=== PATIENT | female | born 1975 | race Caucasian/White ===

== ENCOUNTER 2022-03-10 10:33 | Emergency (ER) | payer OTHER, SELFPAY ==
--- NOTE | ~2022-03-10 | XR_ITS ---
EXAMINATION: XR foot LT min 3V DATE: 03/10/2022 11:20 INDICATION: Left foot pain. TECHNIQUE: 4 views of left foot were obtained. COMPARISON: None. FINDINGS: Bone alignment is normal. No fracture. There is mild osteoarthritis of talonavicular joint, first metatarsophalangeal joint, and some of the interphalangeal joints. There are enthesophytes at the posterior and plantar aspects of calcaneal tuberosity. IMPRESSION: 1. Mild polyarticular osteoarthritis. Reviewed, dictated and finalized at location A. DRAW OPERATOR
--- NOTE | ~2022-03-10 | XR_ITS ---
EXAMINATION: XR ankle LT min 3V DATE: 03/10/2022 11:20 INDICATION: Left ankle pain. TECHNIQUE: 4 views of left ankle were obtained. COMPARISON: None. FINDINGS: Bone alignment is normal. No fracture. There is mild osteoarthritis of talonavicular joint. There are enthesophytes at posterior and plantar aspects of calcaneal tuberosity and medial and late ral malleoli. There is ankle soft tissue swelling. IMPRESSION: 1. Mild osteoarthritis of talonavicular joint. Reviewed, dictated and finalized at location A. ICIDE CHEMIST
[2022-03-10 10:42] VITALS: BP 138/86; PULSE 83; RESP 16; TEMP 36.8; O2SAT 100
--- NOTE | 2022-03-10 11:02 | ED.GENADULT ---
HPI - General Adult General Chief complaint: Extremity Injury, Lower Stated complaint: Left foot/ankle pain Source: patient Mode of arrival: ambulatory Limitations: no limitations History of Present Illness HPI narrative: Patient presents for evaluation of pain in the left ankle and foot. Symptom onset in the foot 6 weeks ago. She was stretching in bed when she felt a ?pop? in the arch of her foot. She states she saw her PCP who did an x ray and advised she had a bone spur. She was given steroids without improvement in her pain thereafter. She was later given meloxicam and a muscle relaxer without improvement. Last night she felt another pop and saw a bulging in the anterior aspect of proximal left foot/ankle. She states she has sharp and burning pain in the area of the swelling. The majority of her pain prior to that time was in the arch of the foot. She is scheduled to see podiatry tomorrow. No additional complaints or concerns. Related Data Home Medications Medication Instructions Recorded Confirmed esomeprazole magnesium 40 mg 40 mg PO DAILY 03/10/22 03/10/22 capsule,delayed release (Nexium) sertraline 50 mg tablet 75 mg DAILY 03/10/22 03/10/22 Allergies Allergy/AdvReac Type Severity Reaction Status Date / Time prochlorperazine Allergy Unknown STATES Verified 03/10/22 10:52 WHOLE BODY BECAME TENSE, UNABLE TO MOVE Review of Systems Review of Systems: CONSTITUTIONAL: Denies fever, chills, or sweats. EYES: Denies visual changes, redness, or discharge. ENT: Denies rhinorrhea, congestion, sore throat, or otalgia. CARDIOVASCULAR: Denies chest pain, palpitations, or edema. RESPIRATORY: Denies cough or dyspnea. GASTROINTESTINAL: Denies abdominal pain, nausea, vomiting, or diarrhea. GENITOURINARY: Denies dysuria or hematuria. SKIN: Denies rash or itching. MUSCULOSKELETAL: Reports pain in the left foot and ankle. NEUROLOGIC: Denies headache, numbness, dizziness, or weakness. PSYCHIATRIC: Denies anxiety or depression. [facility] Past Medical History Medical History (Updated 03/10/22 @ 12:02 by Vin Medeiros, RICHARD, ANGELITA) Ankle strain No pertinent past medical history Plantar fasciitis Surgical History Surgical History History of ankle surgery History of appendectomy History of cholecystectomy Status post lumbar spine surgery for decompression of spinal cord Family History Family History Mother Family history non-contributory Social History Social History Smoking status: Never smoker Substance use: never Living arrangements: with family Gender identity (if verbalized by the patient): Female Sexual Orientation (if Verbalized by the Patient): Straight or Heterosexual Spiritual care concerns: No Exam Narrative: GENERAL: Well-appearing, well-nourished, and in no acute distress. HEAD: Normocephalic, atraumatic. EYES: PERRLA and EOMI. ENT: Nares clear, no rhinorrhea or epistaxis. Mucous membranes moist. Oropharynx without tonsillar hypertrophy exudate or other lesions. Bilateral TMs pearly marie nonbulging NECK: Supple. No adenopathy or masses. No carotid bruits or JVD CHEST: Clear to auscultation. No respiratory distress. No wheezes rales or rhonchi HEART: Regular rate and rhythm. No murmur heard. Normal peripheral pulses. ABDOMEN: Soft, nontender, nondistended, normal active bowel sounds. EXTREMITIES: Able to dorsi and plantarflex left foot. Able to wiggle all digits of left foot. There is swelling and tenderness to anterior aspect of left ankle/proximal foot. Tenderness noted to arch of left foot. SKIN: Warm, dry, no rash. NEURO: No focal deficits. Alert and oriented x3. PSYCH: Normal mood and affect. Course Course Emergency Course: This is a 47 old female presenting for evaluati
== END 2022-03-10 12:12 | disposition home or self-care (01) ==
PROVIDERS: Emergency Provider Nurse Practitioner; PCP Internal Medicine Infectious Disease
DX: M72.2 Plantar fascial fibromatosis (principal); S96.912A Strain of unspecified muscle and tendon at ankle and foot level, left foot, initial encounter; X50.9XXD Other and unspecified overexertion or strenuous movements or postures, subsequent encounter
CPT/HCPCS: 73610; 73630; 99203; G0463

== ENCOUNTER 2025-01-04 15:58 | Emergency (ER) | payer OTHER, SELFPAY ==
--- OUTSIDE RECORDS SUMMARY | 2025-01-04 16:00 | XMS_ITS | Clinical Summary ---
Author Organization [facility] [address] Address [address] [email or web address] [address] Phone Care Team Providers Care Hot Iron Worker Name Role Phone Espinoza Davidson MD Primary Care Provider [phone] Laura Muñoz MD Unavailable [phone] Allergies Active Allergy Reactions Criticality Noted Date Comments Prochlorperazine High Medications cholecalciferol (VITAMIN D-3) 1,000 unit tablet Take 1 tablet (1,000 Units total) by mouth daily Active azelastine (ASTELIN) 137 mcg (0.1 %) nasal spray Administer 1 spray into each nostril 2 (two) times a day Use in each nostril as directed 30 mL 2 Active ferric gluconate (FERRLECIT) 62.5 mg/5 mL (elemental iron) injectionIndicat ions:Iron Deficiency Anemia, Unspecified Inject 10 ml (125 mg total) per IV once weekly x 3 weeks total. 10 mL 2 4 Active tirzepatide (MOUNJARO) 7.5 mg/0.5 mL pen injector Inject 0.5 mL (7.5 mg total) under the skin every 7 days Active cyanocobalamin (Vitamin B-12) 1,000 mcg/mL injectionIndicat ions:Vitamin B12 Deficiency Inject 1 mL (1,000 mcg total) into the muscle as instructed every 30 (thirty) days 1 mL 5 4 Active syringe-needle,s tremaine,abram unt 3 mL 25 gauge x 5/8 syringe 1 Syringe every 30 (thirty) days 1 each 5 4 Active norethindrone (AYGESTIN) 5 mg tabletIndication s:Menorrhagia with irregular cycle Take 1 tablet (5 mg total) by mouth daily 30 tablet 11 5 06/05/19 26 Active albuterol HFA (Ventolin HFA) 90 mcg/actuation inhaler Inhale 2 puffs every 4 (four) hours as needed for wheezing or shortness of breath 8 g 5 5 08/31/19 26 Active benzonatate (TESSALON) 100 mg capsuleIndicatio ns:Cough Take 1 capsule (100 mg total) by mouth 3 (three) times a day as needed for cough 42 capsule 5 Active guaiFENesin-code ine (GUAITUSS AC) liquid 100-10 mg/5 mLIndications:Ac naima cough Take 5 mL by mouth 3 (three) times a day as needed for cough 120 mL [address] (NexIUM) 40 mg capsuleIndicatio ns:Other iron deficiency anemia TAKE 1 CAPSULE DAILY 90 capsule 5 Active sertraline (ZOLOFT) 50 mg tabletIndication s:Recurrent major depressive disorder, in partial remission TAKE 1 TABLET DAILY 90 tablet 5 Active Active Problems Problem Noted Date Diagnosed Date Acute bacterial rhinosinusitis 08/31/2024 Assessment & Plan (08/31/2024 6:25 AM CDT): OK TO DO AUGMENTIN 875 MG PO BID FOR FIVE DAYS TESSALON PLERES 200 MG PO TID FOR 7 DAYS Morbid obesity with BMI of 40.0-44.9, adult 08/02 Assessment & Plan (08/24/2023 11:48 AM CDT): Not stable as the weight has gone up We have tried all sorts of glp 1 agnosit but the insurance denies will try again with these co morbidities Obesity (BMI 30-39.9) 12/02/2020 Routine physical examination 03/04/2018 Assessment & Plan (02/28/2024 4:01 PM CDT): IMMUNIZATIONS WERE REVIEWED TODAY FLU SHOT TODAY HECTOR : CHRONIC AND STABLE ON ZOLOFT LEVEL 2 OBESITY : ON TRIZAPETIDE AT A DOSAGE OF 7.5 MG ONCXE A WEEK LABS ORDERED TODAY GERD WITHOUT ESOPHAGITIS ON NEXIUM NO NAROCTIC OR SUBSTANCE ABUSE NO COGNTIVE DECLINE BLOOD WORK TODAY PATIENT ATTENDANT UPTODATE Primary insomnia 03/04/2018 Iron deficiency anemia 02/03/2017 Assessment & Plan (08/24/2023 11:49 AM CDT): Cbc and iron profile / b12 Recurrent major depressive disorder, in partial remission 02/03/2017 Assessment & Plan (08/24/2023 11:46 AM CDT): She is doing ok On zoloft 50 mg po qday A prescription wqas sent Ankle pain 06/25/2014 Overview (08/07/2016): Ankle pain Encounters Date Type Department Care Team Description 01/04/2025 Telephone [facility] [address] [place] [id number] Espinoza Davidson MD Back Pain from Last 3 Months Immunizations Immunization Administration Dates Next Due Influenza, Quadrivalent, Spl it, Preservative Free, Intramuscular 03/06/2020 Influenza, Split 05/10/2013 Influenza, Trivalent, IM (MDV) 05/17/2015,2013,05/10/2013 Influenza, Trivalent, Preser vative Free, Intramuscular 02/28/2024 Influenza, Unspecified 02/22/2023(Deferred: Tati ent Refused) Moderna SARS-CoV-2 Monovalen t Vaccination (12+ YRS) 07/16/2020,06/12/2020 Surgical History Surgery Date Site/Laterality Comments APPENDECTOMY 05/03/2009 - 05/02/2010 Appendectomy LAPAROSCOPIC CHOLECYSTECTOMY 05/03/2003 - 05/02/2004 ANKLE FRACTURE SURGERY 05/03/2014 - 05/02/2015 Right BACK SURGERY 05/03/2017 - 05/02/2018 disc decompression SECTION 05/03/2013 - 05/02/2014 Medical History Medical History Date Comments Hx Other Medical ORIF Hx Other Medical 2007 L5-S1 disk rosaura iation - Dr. Larkin Hx Other Medical ORIF right medi al malleolus with 2 cannulated canc; Comments: LARRY 05/29/2014 - Family History Medical History Relation Name Comments Other Father Unknown history ; Diabetes Maternal Grandmother Hypertension Maternal Grandmother Bipolar disorder Mother Bipolar dis order; Depression Mother Depression; Heart attack Mother cause of Hypertension Mother Lung disease Mother Lung Disease; Diabetes Other Diabetes mellit us; Diabetes Paternal Grandfather Relation Name Status Comments Father Maternal Grandmother Mother Other Paternal Grandfather Social History Tobacco Use Types Packs/Day Years Used Date Smoking Tobacco: Former Cigarettes 1999 Smokeless Tobacco: Never Tobacco Cessation:Counseling Given: Not Answered Comments:social smoker Alcohol Use Standard Drinks/Week Comments Yes 0 (1 standard drink = 0.6 oz pur e alcohol) PHQ-2 Answer Date Recorded PHQ-2 Total Score (If total score is 3 or more points, staff should administer the PHQ-9) 0 02/28/2024 Comments No Sex and Gender Information Value Date Recorded Sex Assigned at Not on file Legal Sex Female 5:36 PM RAG SORTER Gender Identity Not on file Sexual Orientation Not on file Occupation Industry Job Start Date Job End Date Not on file Not on file Not on file Not on file Obstetrics History Para Term AB IAB SAB Ectopic Multiple Livin g Live Births 2 2 2 2 2 Date Outcome GA Total Labor Labor/2nd/3rd Weight Sex Type Anes PTL Nancy A1 A5 Name Clin 1999 Term 37w 0d 3.204 kg (7 lb 1 oz) M Vag-S pont Living Complications:None 2013 Term 39w 0d 3.062 kg (6 lb 12 oz) F CS-LT ranv Living Comments 2. 2013 - scheduled c/s for 10 cm uterine fibroid. Last Filed Vital Signs Vital Sign Reading Time Taken Comments Blood Pressure 142/88 06/05/2024 8:33 AM RAG SORTER Pulse 86 02/28/2024 3:04 PM CDT Temperature 36.4 C (97.5 F) 02/28/2024 3:04 PM CDT Respiratory Rate 16 02/28/2024 3:04 PM CDT Oxygen Saturation 99% 02/28/2024 3:04 PM CDT Inhaled Oxygen Concentration - - Weight 82.1 kg (181 lb) 06/05/2024 8:33 AM RAG SORTER Height 149.9 cm (4' 11) 04/05/2024 8:43 AM RAG SORTER Body Mass Index 36.56 04/05/2024 8:43 AM RAG SORTER Plan of Treatment Health Maintenance Due Date Last Done Comments Colon Cancer Screening-Colonoscopy 1977 Hepatitis C Screening 1977 DTaP/Tdap/Td Vaccine (1 - Tdap) 1988 Hepatitis B Screening 1995 Covid-19 Vaccine (3 - Moderna risk series) 08/13/2020 07/16/2020, 06/12/2020 Cervical Cancer Screening 12/02/2021 12/02/2020 Influenza Vaccine (#1) 2025 , 03/06/2020, 05/17/2015, Additional history exists Depression Screening 02/27/2025 02/28/2024 Regular Well Visit/Exam 18-64 04/05/2025 04/05/2024, 02/28/2024, 03/31/2023, Additional history exists Breast Cancer Screening-Mammogram 05/31/2025 05/31/2024, 03/31/2023, 06/19/2021, Additional history exists Pneumococcal vaccine <65 Aged Out No longer eligible based on patient's age to complete this topic Procedures Procedure Name Priority Date/Time Associated Diagnosis Comments SCREENING MAMMOGRAM BILATERAL W TIM Schedule Routine, Read Routine (OP Routine) 05/31/2024 8:55 AM RAG SORTER Encounter for screening mammogram for breast cancer IMAGING PAP AND HPV MRNA E6/E7 Routine 12/02/2020 12:00 AM CDT from Last 3 Months or Most Recently Relevant to Health Maintenance Results * Screening Mammogram Bilateral W Tim (05/31/2024 8:55 AM RAG SORTER) Anatomical Region Laterality Modality Breast Bilateral Mammography 05/31/2024 4:08 PM RAG SORTER Impressions 05/31/2024 4:08 PM RAG SORTER There is no mammographic evidence of malignancy. A 1 year screening mammogram is recommended. BI-RADS: 1 - Negative. The patient has been or will be contacted. The patient will be entered into a reminder system with a target due date of 1 year for her next mammogram. Electronically signed by: Brooke Griffiths M.D. Narrative 05/31/2024 4:08 PM RAG SORTER EXAMINATION: SCREENING MAMMOGRAM BILATERAL W TIM ORDERING HEALTHCARE PROVIDER: TOD TONEY HISTORY: Routine screening mammography. COMPARISON: 03/31/2023, 06/19/2021, 02/07/2020, 05/21/2018 TECHNIQUE: CC and MLO views of the bilateral breasts were obtained with digital technique using breast tomosynthesis with C view. Computer aided detection was utilized. FINDINGS: DENSITY: There are scattered areas of fibroglandular density. BREASTS: There are no suspicious masses, suspicious calcifications, or other suspicious findings in either breast. There has been no suspicious interval change. Tod Toney MD IMG MAMMO PROCEDURES Final Result * Imaging Pap and HPV mRNA E6/E7 (12/02/2020 12:00 AM CDT) CLINICAL INFORMATION: [facility] Comment:Information not prov ided LMP [facility] Comment:11/12/20 Previous Pap [facility] Comment:Information not prov ided Prev. Bx [facility] Comment:Information not prov ided SOURCE: [facility] Comment:Cervix, Endocervix Pap, specimen adequacy [facility] Comment: Satisfactory for evaluation. Endocervical/transformation zone component absent. HPV interp [facility] Comment:Negative for intraep ithelial lesion or malignancy. COMMENTS [facility] Comment: This Pap test has been evaluated with computer assisted technology. Operating Room Assistant [facility] Comment: LMT, CT(ASCP) CT screening location: [place] [address] [address] [place] [address] Review grade recorder [facility] Comment: MVB, CT(ASCP) CT screening location: [place] [address] [address] [address] Comment [facility] Comment: EXPLANATORY NOTE: The Pap is a screening test for cervical cancer. It is not a diagnostic test and is subject to false negative and false positive results. It is most reliable when a satisfactory sample, regularly obtained, is submitted with relevant clinical findings and history, and when the Pap result is evaluated along with historic and current clinical information. Human papillomavirus RNA, High Risk E6/E7 Not Detected Not Detected [facility] Comment: Methodology: Test Preparation Tutor-Mediated Amplification This assay detects E6/E7 viral messenger RNA (mRNA) from 14 high-risk HPV types (16,18,31,33,35,39,45,51,52,56,58,59,66,68). The analytical performance characteristics of this assay have been determined by [facility]. The modifications have not been cleared or approved by the FDA. This assay has been validated pursuant to the CLIA regulations and is used for clinical purposes. For additional information, please refer to http://education.[employer]/faq/REM311k5 (This link if provided for information/ educational purposes only.) 12/02/2020 12/03/2020 6:5 5 AM CDT Narrative [facility] - 12/04/2020 12:06 PM CDT FASTING: UNKNOWN Tod Toney MD LAB PATHOLOGY ORDERAB LES Final Result [facility] [address] [place] [address] [facility] [address] [place] [address] from Last 3 Months or Most Recently Relevant to Health Maintenance Insurance [facility] CHOICE [facility]US [facility] HMO/PPO Address: [address] [address] [place] [address] [facility]/PPO Address: [address] [address] [place] [address] [facility] CHOICE [facility]US [facility] HMO/PPO Address: [address] [address] [place] [address] [facility] CHO[facility] HMO/PPO Address: [address] [address] [place] [address] Care Teams Hot Iron Worker Relationship Specialty Start Date End Date Espinoza Davidson MD [address] [place] [id number] PCP - General 12/05/09 Laura Muñoz MD [address] [place] [address] Referring Physician Gynecology 03/09/19
--- OUTSIDE RECORDS SUMMARY | 2025-01-04 16:00 | XMS_ITS | Encounter Summary ---
Author Organization [facility] Healthcare Address [address] [place] [address] Care Team Providers Care Hospice Spiritual Care Coordinator Name Role Phone Espinoza Davidson MD Primary Care Provider [phone] Laura Muñoz MD Unavailable [phone] Reason for Visit * Reason Onset Date Comments Back Pain 01/04/2025 Encounter Details Date Type Department Care Team (Late st Contact Info) Description 01/04/2025 Telephone [facility] [address] [place] [address] Espinoza Davidson MD [address] [place] [address] Back Pain Social History Tobacco Use Types Packs/Day Years Used Date Smoking Tobacco: Former Cigarettes 1 - 1999 Smokeless Tobacco: Never Comments:social smoker Alcohol Use Standard Drinks/Week Comments Yes 0 (1 standard drink = 0.6 oz pur e alcohol) PHQ-2 Answer Date Recorded PHQ-2 Total Score (If total score is 3 or more points, staff should administer the PHQ-9) 0 02/28/2024 Comments No Sex and Gender Information Value Date Recorded Sex Assigned at Not on file Legal Sex Female 5:36 PM DIRECT SUPPORT SPECIALIST Gender Identity Not on file Sexual Orientation Not on file Occupation Industry Job Start Date Job End Date Not on file Not on file Not on file Not on file documented as of this encounter Miscellaneous Notes * Telephone Encounter - Carroll Romo RN - 01/04/2025 2:44 PM CDT Spoke to pt et informed of below TLQ message Pt voices understand et states she did not go to Urgent Care today-she went to a chiropractor for therapy/adjust et he informed pt could have possible bulging disc Pt states she has had low back pain radiating down left leg for past 3days- after my back surgery, my L leg usually feels numb but now there is pain shooting down my leg for past 3days, I haven't been able to work because it gets better if I sit et rest but if I stand or walk it comes back, I am going to try to go to work tomorrow Pt denies red/swelling to LL Foot drop Bowel/bladder c/o Any other c/o CARD HANGER appt scheduled for 01-09-25 @ 4:00-pt declined sooner appt due to needing latest appt of the day Instructed pt to go to Urgent Care w/xray capability or ER if c/o worsen prior to above appt Pt voices understand et has no further questions @ this time * Telephone Encounter - Carroll Romo RN - 01/04/2025 2:19 PM CDT [facility] Cbn#[phone] * Telephone Encounter - Espinoza Davidson MD - 01/04/2025 1:26 PM CDT Can we check on her after she has been seen * Telephone Encounter - Ketty Siddiqui - 01/04/2025 8:28 AM CDT Patient calling to state that she is having severe back pain and has for about 3 days. 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 Pt was advised to go to urgent care to get an xray completed since there are no available appts until Wednesday and we would have to see her before ordering anything. I advised pt that we could follow up with her if they are unable to help her. Pt agreed and stated that she will go to the [facility] Urgent Care in [place]. FYI Pt cbn: [phone] documented in this encounter Plan of Treatment Not on file documented as of this encounter Visit Diagnoses Not on filedocumented in this encounter Care Teams Hospice Spiritual Care Coordinator Relationship Specialty Start Date End Date Espinoza Davidson MD [address] [place] [address] PCP - General 12/05/09 Laura Muñoz MD [address] [place] [address] Referring Physician Gynecology 03/09/19 documented as of this encounter
--- NOTE | 2025-01-04 16:03 | ED.BACK ---
HPI - Back Pain/Injury General Chief Complaint: Back Pain/Injury Stated Complaint: Back Pain Time Seen by Provider: 01/04/25 16:42 Source: patient, RN notes reviewed and old records reviewed Mode of arrival: ambulatory Limitations: no limitations History of Present Illness HPI Narrative: 49-year-old female presents to the [facility] with complaints of left lower back pain radiating down left leg. Patient states she has a history of back surgery. States the pains been going on approximately 3 weeks. Had seen him chiropractor 2 times, did a cupping treatment. Denies any injury. Denies any loss of tension bowel or bladder. Walks with a normal gait. No erythema or ecchymosis. Mode no midline tenderness. Has an appointment with primary care provider on Wednesday at 4:00 p.m.. Onset (ago): week(s) (3) Related Data Home Medications ?Medication ?Instructions ?Recorded ?Confirmed ?Last Taken ?Type esomeprazole magnesium 40 mg 40 mg PO DAILY 03/10/22 03/10/22 Unknown History capsule,delayed release (Nexium) sertraline 50 mg tablet 75 mg DAILY 03/10/22 03/10/22 Unknown History Allergies Allergy/AdvReac Type Severity Reaction Status Date / Time prochlorperazine Allergy Unknown STATES Verified 01/04/25 16:05 WHOLE BODY BECAME TENSE, UNABLE TO MOVE Review of Systems Review of Systems: All systems reviewed & are unremarkable except as noted in HPI and below Constitutional: Constitutional: Reports no additional constitutional complaints Gastrointestinal: Gastrointestinal: Reports no additional gastrointestinal complaints Genitourinary: Genitourinary: Reports no additional female genitourinary complaints Musculoskeletal: Musculoskeletal: Reports as per HPI, Reports back pain (Left lower radiating down left leg), Denies joint swelling, Denies muscle weakness and Reports radiating pain into limb Integumentary/Breasts: Skin/Breast: Reports system reviewed and no additional complaints, except as docu PMFSH Past Medical History Medical History Ankle strain Plantar fasciitis No pertinent past medical history Surgical History Surgical History History of ankle surgery History of appendectomy History of cholecystectomy Status post lumbar spine surgery for decompression of spinal cord Family History Family History Mother Family history non-contributory Social History Social History Smoking status: Never smoker Substance use: never Living arrangements: with family Gender identity (if verbalized by the patient): Female Sexual Orientation (if Verbalized by the Patient): Straight or Heterosexual Spiritual care concerns: No Comments At the time of my signature, I reviewed and agree with the nursing past medical, surgical, social, and family history. There is no relevant family history pertinent to the patient complaint. Exam Const: General: cooperative, healthy appearing, comfortable, no acute distress, well developed, alert and well nourished Nutritional Appearance: well nourished and obese Orientation/consciousness: patient oriented x3 Limitations: no limitations HENMT: Head: normal to inspection Eyes: General: appearance normal, both eyes and all related structures Alignment and Position: alignment normal Neck: Neck: normal visual inspection, full ROM, no lymphadenopathy and no meningeal signs Chest: Chest palpation & inspection: normal inspection of the chest Resp: Effort & Inspection: normal respiratory effort and able to speak in complete sentences Auscultation: clear to auscultation bilaterally, no crackles, no rales, no rhonchi and no wheezes Cardio: Rate: regular rate Back/Spine/Pelvis: Back: No erythema, No warmth, No sacral edema and No ecchymosis Cervical Spine: normal cervical lordosis Thoracic/Lumbar Spine: No paraspinal muscle tenderness, No thoracic spinal tenderness and No lumbar spinal tenderness Pelvis: no pain with lateral compression and sciatic notch tenderness on the left Skin: General skin exam: normal color and no rashes or lesions noted Neuro: General: patient oriented x3, gait normal, moves all extremities and no meningeal signs Cognition (Neuro): normal cognition Speech: normal speech Gait exam (Neuro): Normal gait present Extrem: General: normal to inspection, full ROM, capillary refill normal and normal gait Psych: Appearance: grossly normal and well kempt Mental Status: mental status grossly normal Speech and movement: Normal speech and movement present and Clear speech present Affect: normal affect Attitude: cooperative Course Course Level of Care: Express Care Visit Vital Signs Vital signs: Vital Signs Temperature 98.1 F 01/04/25 16:10 Pulse Rate 81 01/04/25 16:10 Respiratory Rate 18 01/04/25 16:10 Blood Pressure 156/76 H 01/04/25 16:10 Pulse Oximetry 99 01/04/25 16:10 Oxygen Delivery Room Air 01/04/25 16:10 Temperature 98.1 F 01/04/25 16:10 Pulse Rate 81 01/04/25 16:10 Respiratory Rate 18 01/04/25 16:10 Blood Pressure 156/76 H 01/04/25 16:10 Pulse Oximetry 99 01/04/25 16:10 Oxygen Delivery Room Air 01/04/25 16:10 Reviewed MDM - Back Pain/Injury MDM Narrative Medical decision making narrative: Patient sitting in exam. Patient is nontoxic, vitals stable. Patient with 3 week history of left lower back pain. Had seen her chiropractor. Has an appointment with primary care provider on Wednesday. Denies any injury. Denies loss retention a viral plantar. No midline tenderness. Tender to the sciatic area left buttock. Patient appropriate for outpatient treatment of sciatica Discharge instructions reviewed with patient, as well as provided in writing per nursing staff. The instructions also include specific and strict return/GO TO THE ER as well as f/u information. All questions have been answered, and the patient deny any further questions with discharge and discharge plan. Some parts of this dictation were generated by voice recognition software and may contain typographical and/or grammatical inaccuracies. Differential Diagnosis Differential diagnosis: Likely lumbar radiculopathy, sciatica and strain of lumbar region Critical Care Time Critical Care Time Critical Care Time: No Discharge Plan Discharge Clinical Impression: Acute left-sided back pain with sciatica Patient Disposition: Home Condition: Stable Instructions: Antibiotic Form, Sciatica (ED), Lower Back Exercises (ED) Additional Instructions: Take ibuprofen as directed to decrease inflammation and to help pain. Take Baclofen (muscle relaxer) as directed. Do not drink, drive, operate machinery, or do anything dangerous while taking this medication Exercise:Combine aerobic exercise, like walking or swimming, with specific exercises to keep the muscles in your back and abdomen strong and flexible. Proper Lifting:Be sure to lift heavy items with your legs, not your back. Do not bend over to pick something up. Keep your back straight and bend at your knees. Weight:Maintain a healthy weight. Being overweight puts added stress on your lower back. Avoid Smoking:Both the smoke and the nicotine cause your spine to age faster than normal. Proper Posture:Good posture is important for avoiding future problems. A therapist can teach you how to safely stand, sit, and lift. Use warm moist heat to help with pain. Using topical such as Biofreeze, Kevin-Gunderson or Aspercreme can also help Follow up with Primary provider in 2-3 days, This may become a chronic condition and they will be the one to help manage your pain and order additional testing. Go to the nearest ER if you develop problems with bladder/bowel function, weakness or loss of feeling in one or both of your legs. Patient Language: Kazakh Prescriptions: New baclofen 10 mg tablet 10 mg PO TID PRN (Reason: muscle pain) Qty: 10 0RF prednisone 20 mg tablet 40 mg PO DAILY 5 Days Qty: 10 0RF No Action esomeprazole magnesium [Nexium] 40 mg Capsule,Delayed Release(Dr/Ec) 40 mg PO DAILY sertraline 50 mg tablet 75 mg DAILY metaxalone 800 mg tablet 800 mg PO TID PRN (Reason: muscle pain) Qty: 15 0RF hydrocodone-acetaminophen 5-325 mg tablet 1 - 2 tablet PO Q6H PRN (Reason: pain) Qty: 10 0RF Follow-up/Referrals: Stuart,MD Espinoza [Primary Care Provider] Stand Alone Forms: Work/School Release IP Time of Disposition: 16:52
[2025-01-04 16:10] VITALS: BP 156/76; PULSE 81; RESP 18; TEMP 36.7; O2SAT 99
== END 2025-01-04 17:00 | disposition home or self-care (01) ==
PROVIDERS: Emergency Provider Nurse Practitioner; PCP Internal Medicine Infectious Disease
DX: M54.42 Lumbago with sciatica, left side (principal)
CPT/HCPCS: 99213; G0463